=== PATIENT | male | born 1950 | race Two or more races ===

== ENCOUNTER 2024-10-19 07:53 | Day surgery (SDC) | payer OTHER ==
[2024-10-19] MEDS ORDERED: fentaNYL CITRATE 50 MCG/ML AMPUL IV ONE (13:30)
[2024-10-19] MEDS ORDERED: MIDAZOLAM HCL 2 MG/2 ML VIAL IV ONE (13:30)
[2024-10-19] MEDS ORDERED: DIPHENHYDRAMINE HCL 50 MG/ML VIAL 1ML IV ONE (13:30)
== END 2024-10-19 15:15 | disposition home or self-care (01) ==
LOC: AMB-ENDOS 07:53
PROVIDERS: ATTEND Surgery
DX: D12.4 Benign neoplasm of descending colon (principal); K63.5 Polyp of colon; K57.30 Diverticulosis of large intestine without perforation or abscess without bleeding; K64.8 Other hemorrhoids